=== PATIENT | female | born 1950 | race Caucasian/White ===

== ENCOUNTER 2019-04-18 07:57 | Inpatient (IN) | payer MEDICARE ==
[~2019-04-18] VITALS: Ht 152.4 cm; Wt 60.9 kg
[~2019-04-18 07:57] MED LIST: AMLO10TA4 PO; ATOR10TA PO; CALC1CAP8 PO; CHOL100015 PO; CHOL10002 PO; LEVO50TA64 PO; METO25TA91 PO; OMEP20CA9 PO
[2019-04-18] MEDS ORDERED: SODIUM CHLORIDE 0.9% 1,000 ML IV SCH (08:48)
[2019-04-18 08:49] VITALS: BP 120/71
[2019-04-18] MEDS ORDERED: PLEASE ENTER HEIGHT AND WEIGHT MC SCH (09:00)
[2019-04-18 09:24] LABS: INTERNATIONAL NORMALIZED RATIO 0.92 (0.93-1.1); PROTHROMBIN TIME 9.7 Seconds (9.6-11.5)
[2019-04-18] MEDS ORDERED: FENTANYL PF 100 MCG/2ML ONE (10:07)
[2019-04-18] MEDS ORDERED: FLUMAZENIL 0.1 MG/1 ML, 5ML ONE (10:07)
[2019-04-18] MEDS ORDERED: MIDAZOLAM 1 MG/ML, 5ML ONE (10:07)
[2019-04-18] MEDS ORDERED: NALOXONE 1 MG/ML, 2ML ONE (10:07)
[2019-04-18] MEDS ORDERED: ONDANSETRON 2MG/ML, 2ML IVPush PRN (13:00)
[2019-04-18] MEDS ORDERED: ONDANSETRON ODT 4 MG PO PRN (13:00)
[2019-04-18 13:44] LABS: BASOPHILS # (AUTO) 0.02 x10^3/uL (0-0.1); BASOPHILS % (AUTO) 0 % (0-1); EOSINOPHILS # (AUTO) 0.05 x10^3/uL (0-0.4); EOSINOPHILS % (AUTO) 1 % (1-7); LYMPHOCYTES # (AUTO) 1.43 x10^3/uL (1-3.4); LYMPHOCYTES % (AUTO) 21 % (22-44); MD NO; MEAN CORPUSCULAR HEMOGLOBIN 28.2 pg (27.0-34.8); MEAN CORPUSCULAR HGB CONC 32.4 g/dL (32.4-35.8); MEAN PLATELET VOLUME 7.9 fL (7.4-10.4); MONOCYTES # (AUTO) 0.55 x10^3/uL (0.2-0.8); MONOCYTES % (AUTO) 8 % (2-9); NEUTROPHILS # (AUTO) 4.64 x10^3/uL (1.8-6.8); NEUTROPHILS % (AUTO) 69 % (42-75); PLATELET COUNT 440 x10^3/uL (130-400); RED BLOOD COUNT 3.66 x10^6/uL (3.82-5.3); RED CELL DISTRIBUTION WIDTH 15.7 % (9.6-15.2)
[2019-04-18 13:56] LABS: ALANINE AMINOTRANSFERASE 12 U/L (12-78); ALBUMIN 2.5 g/dL (3.4-5.0); ANION GAP 7 mmol/L (5-15); CHLORIDE 110 mmol/L (98-107)
[2019-04-18 14:07] LABS: ALKALINE PHOSPHATASE 93 U/L (45-117); BILIRUBIN,TOTAL 0.2 mg/dL (0.2-1.0); THYROID STIMULATING HORMONE 0.254 mIU/L (0.358-3.740)
[2019-04-18] MEDS ORDERED: CHOLECALCIFEROL 10000 UNIT PO SCH (14:30)
[2019-04-18 14:34] VITALS: BP 143/78
[2019-04-18] MEDS: SODIUM CHLORIDE 0.9% 1,000 ML IV SCH (15:46)
[2019-04-18] MEDS: CEFTRIAXONE PMX 1GM/50ML 50 ML IV SCH (15:46)
[2019-04-18 18:56] LABS: CREATININE,URINE RANDOM 66.5 mg/dL
[2019-04-18 19:12] LABS: CULTURE INDICATED? YES; MICROSCOPIC INDICATED
[2019-04-18 19:23] VITALS: BP 120/69
[2019-04-18] MEDS: METOPROLOL SUCCINATE 25 MG TAB.ER.24H PO SCH (21:39)
[2019-04-18] MEDS: CALCIUM/VITAMIN D3 250-125 TABLET PO SCH (21:39)
[2019-04-18] MEDS: ATORVASTATIN 10 MG TABLET PO SCH (21:39)
[2019-04-19] MEDS: SODIUM CHLORIDE 0.9% 1,000 ML IV SCH ×2 (02:07→15:32)
[2019-04-19 02:12] VITALS: BP 134/67
[2019-04-19] MEDS: LEVOTHYROXINE 25 MCG TABLET PO SCH (04:59)
[2019-04-19 05:05] LABS: BASOPHILS # (AUTO) 0.02 x10^3/uL (0-0.1); BASOPHILS % (AUTO) 0 % (0-1); EOSINOPHILS # (AUTO) 0.12 x10^3/uL (0-0.4); EOSINOPHILS % (AUTO) 2 % (1-7); LYMPHOCYTES % (AUTO) 17 % (22-44); MD NO; MEAN CORPUSCULAR HEMOGLOBIN 26.9 pg (27.0-34.8); MEAN CORPUSCULAR HGB CONC 31.4 g/dL (32.4-35.8); MEAN CORPUSCULAR VOLUME 85.9 fL (80-100); MEAN PLATELET VOLUME 8.1 fL (7.4-10.4); MONOCYTES # (AUTO) 0.39 x10^3/uL (0.2-0.8); MONOCYTES % (AUTO) 7 % (2-9); NEUTROPHILS # (AUTO) 4.32 x10^3/uL (1.8-6.8); NEUTROPHILS % (AUTO) 74 % (42-75); PLATELET COUNT 399 x10^3/uL (130-400); RED BLOOD COUNT 3.66 x10^6/uL (3.82-5.3); RED CELL DISTRIBUTION WIDTH 15.7 % (9.6-15.2)
[2019-04-19 05:09] LABS: ALBUMIN 2.3 g/dL (3.4-5.0); ANION GAP 6 mmol/L (5-15); CHLORIDE 113 mmol/L (98-107)
[2019-04-19 05:18] LABS: % IRON SATURATION 13 % (20-55); ALANINE AMINOTRANSFERASE 13 U/L (12-78); ALKALINE PHOSPHATASE 91 U/L (45-117); BILIRUBIN,TOTAL 0.2 mg/dL (0.2-1.0); CREATININE 2.93 mg/dL (0.55-1.02); IRON LEVEL 17 mcg/dL (50-170); THYROID STIMULATING HORMONE 0.196 mIU/L (0.358-3.740); TOTAL IRON BINDING CAPACITY 134 mcg/dL (250-450); TOTAL PROTEIN 7.4 g/dL (6.4-8.2)
[2019-04-19 06:52] VITALS: BP 118/72
[2019-04-19] MEDS ORDERED: LEVOTHYROXINE 25 MCG TABLET PO ONE (07:00)
[2019-04-19] MEDS: CALCIUM/VITAMIN D3 250-125 TABLET PO SCH ×2 (08:53→21:33)
[2019-04-19] MEDS: METOPROLOL SUCCINATE 25 MG TAB.ER.24H PO SCH ×2 (08:53→21:33)
[2019-04-19] MEDS: CHOLECALCIFEROL 1,000 UNIT TABLET PO SCH (08:53)
[2019-04-19] MEDS: OMEPRAZOLE 20 MG CAPSULE.DR PO SCH (08:53)
[2019-04-19] MEDS: AMLODIPINE 10 MG TAB PO SCH (08:53)
[2019-04-19] MEDS ORDERED: LEVOTHYROXINE 25 MCG TABLET PO SCH (09:00)
[2019-04-19] MEDS ORDERED: LEVOTHYROXINE 50 MCG TABLET PO SCH (09:00)
[2019-04-19 12:43] VITALS: BP 130/66
[2019-04-19] MEDS: CEFTRIAXONE PMX 1GM/50ML 50 ML IV SCH (15:32)
[2019-04-19 19:11] VITALS: BP 119/67
[2019-04-19] MEDS: ATORVASTATIN 10 MG TABLET PO SCH (21:33)
[2019-04-20 01:12] VITALS: BP 127/68
[2019-04-20] MEDS: SODIUM CHLORIDE 0.9% 1,000 ML IV SCH (04:26)
[2019-04-20] MEDS: LEVOTHYROXINE 25 MCG TABLET PO SCH (05:25)
[2019-04-20] MEDS: METOPROLOL SUCCINATE 25 MG TAB.ER.24H PO SCH ×2 (05:28→20:15)
[2019-04-20 05:55] LABS: BASOPHILS # (AUTO) 0.01 x10^3/uL (0-0.1); BASOPHILS % (AUTO) 0 % (0-1); EOSINOPHILS # (AUTO) 0.09 x10^3/uL (0-0.4); EOSINOPHILS % (AUTO) 1 % (1-7); LYMPHOCYTES # (AUTO) 1.07 x10^3/uL (1-3.4); LYMPHOCYTES % (AUTO) 14 % (22-44); MD NO; MEAN CORPUSCULAR HEMOGLOBIN 28.1 pg (27.0-34.8); MEAN CORPUSCULAR HGB CONC 32.2 g/dL (32.4-35.8); MEAN CORPUSCULAR VOLUME 87.3 fL (80-100); MEAN PLATELET VOLUME 8.3 fL (7.4-10.4); MONOCYTES # (AUTO) 0.44 x10^3/uL (0.2-0.8); MONOCYTES % (AUTO) 6 % (2-9); NEUTROPHILS # (AUTO) 5.88 x10^3/uL (1.8-6.8); NEUTROPHILS % (AUTO) 79 % (42-75); PLATELET COUNT 381 x10^3/uL (130-400); RED BLOOD COUNT 3.49 x10^6/uL (3.82-5.3); RED CELL DISTRIBUTION WIDTH 15.8 % (9.6-15.2)
[2019-04-20 06:02] LABS: CALCIUM 8.9 mg/dL (8.5-10.1); CHLORIDE 119 mmol/L (98-107)
[2019-04-20 06:09] LABS: ALANINE AMINOTRANSFERASE 14 U/L (12-78); ALBUMIN 2.1 g/dL (3.4-5.0); ALKALINE PHOSPHATASE 92 U/L (45-117); ANION GAP 11 mmol/L (5-15); BILIRUBIN,TOTAL 0.2 mg/dL (0.2-1.0); CREATININE 2.94 mg/dL (0.55-1.02)
[2019-04-20 08:00] VITALS: BP 126/70
[2019-04-20] MEDS: AMLODIPINE 10 MG TAB PO SCH (09:00)
[2019-04-20] MEDS: CALCIUM/VITAMIN D3 250-125 TABLET PO SCH ×2 (09:00→20:15)
[2019-04-20] MEDS: OMEPRAZOLE 20 MG CAPSULE.DR PO SCH (09:00)
[2019-04-20] MEDS: CHOLECALCIFEROL 1,000 UNIT TABLET PO SCH (09:00)
[2019-04-20] MEDS: IRON SUCROSE COMPLEX 100MG/5ML IV SCH (10:35)
[2019-04-20] MEDS: SODIUM BICARBONATE 8.4% 50 MEQ in DEXTROSE 5% 1,000 ML IV SCH (11:16)
[2019-04-20] MEDS ORDERED: FENTANYL PF 250 MCG/5ML ONE (13:43)
[2019-04-20] MEDS ORDERED: MIDAZOLAM 1 MG/ML, 2ML ONE (13:43)
[2019-04-20 14:00] VITALS: BP 133/79
[2019-04-20] MEDS ORDERED: DEXAMETHASONE 4 MG/ML, 1ML ONE (14:27)
[2019-04-20] MEDS ORDERED: ONDANSETRON 2MG/ML, 2ML ONE (14:27)
[2019-04-20] MEDS: CEFTRIAXONE PMX 1GM/50ML 50 ML IV SCH (16:31)
[2019-04-20] MEDS: ACETAMINOPHEN 325 MG TABLET PO PRN (18:08)
[2019-04-20 19:09] VITALS: BP 110/65
[2019-04-20] MEDS: ATORVASTATIN 10 MG TABLET PO SCH (20:15)
[2019-04-21 00:22] VITALS: BP 125/72
[2019-04-21] MEDS: SODIUM BICARBONATE 8.4% 50 MEQ in DEXTROSE 5% 1,000 ML IV SCH ×2 (03:58→23:21)
[2019-04-21] MEDS: LEVOTHYROXINE 25 MCG TABLET PO SCH (05:12)
[2019-04-21] MEDS: METOPROLOL SUCCINATE 25 MG TAB.ER.24H PO SCH ×2 (05:12→21:08)
[2019-04-21 06:23] LABS: ALANINE AMINOTRANSFERASE 12 U/L (12-78); ALBUMIN 2.2 g/dL (3.4-5.0); ANION GAP 9 mmol/L (5-15); CALCIUM 9.5 mg/dL (8.5-10.1); CHLORIDE 115 mmol/L (98-107); CREATININE 2.61 mg/dL (0.55-1.02)
[2019-04-21 06:26] LABS: ALKALINE PHOSPHATASE 96 U/L (45-117); BILIRUBIN,TOTAL 0.2 mg/dL (0.2-1.0); MEAN CORPUSCULAR HEMOGLOBIN 28.1 pg (27.0-34.8); MEAN CORPUSCULAR HGB CONC 32.1 g/dL (32.4-35.8); MEAN CORPUSCULAR VOLUME 87.3 fL (80-100); MEAN PLATELET VOLUME 8.5 fL (7.4-10.4); PLATELET COUNT 378 x10^3/uL (130-400); RED BLOOD COUNT 3.53 x10^6/uL (3.82-5.3); RED CELL DISTRIBUTION WIDTH 15.7 % (9.6-15.2); TOTAL PROTEIN 7.4 g/dL (6.4-8.2)
[2019-04-21 06:42] LABS: BASOPHILS # (AUTO) 0.02 x10^3/uL (0-0.1); BASOPHILS % (AUTO) 0 % (0-1); EOSINOPHILS # (AUTO) 0.01 x10^3/uL (0-0.4); EOSINOPHILS % (AUTO) 0 % (1-7); LYMPHOCYTES # (AUTO) 1.02 x10^3/uL (1-3.4); LYMPHOCYTES % (AUTO) 9 % (22-44); MD SCAN; MONOCYTES % (AUTO) 1 % (2-9); NEUTROPHILS # (AUTO) 10.05 x10^3/uL (1.8-6.8); NEUTROPHILS % (AUTO) 90 % (42-75)
[2019-04-21 07:44] VITALS: BP 134/74
[2019-04-21] MEDS: CALCIUM/VITAMIN D3 250-125 TABLET PO SCH ×2 (09:00→21:06)
[2019-04-21] MEDS: AMLODIPINE 10 MG TAB PO SCH (09:00)
[2019-04-21] MEDS: OMEPRAZOLE 20 MG CAPSULE.DR PO SCH (09:00)
[2019-04-21] MEDS: CHOLECALCIFEROL 1,000 UNIT TABLET PO SCH (09:00)
[2019-04-21] MEDS ORDERED: LIDOCAINE 1%, 20ML ONE (09:21)
[2019-04-21] MEDS ORDERED: FLUMAZENIL 0.1 MG/1 ML, 5ML ONE (09:26)
[2019-04-21] MEDS ORDERED: MIDAZOLAM 1 MG/ML, 5ML ONE (09:26)
[2019-04-21] MEDS ORDERED: FENTANYL PF 100 MCG/2ML ONE (09:26)
[2019-04-21] MEDS ORDERED: NALOXONE 1 MG/ML, 2ML ONE (09:27)
[2019-04-21] MEDS ORDERED: DIPHENHYDRAMINE 50 MG/ML, 1ML IVPush ONE (10:00)
[2019-04-21] MEDS ORDERED: methylPREDNISolone SOD SUCC 125 MG/2 ML IVPush SCH (10:00)
[2019-04-21] MEDS: IRON SUCROSE COMPLEX 100MG/5ML IV SCH (10:37)
[2019-04-21 12:51] VITALS: BP 147/75
[2019-04-21] MEDS: CEFTRIAXONE PMX 1GM/50ML 50 ML IV SCH (17:30)
[2019-04-21 19:55] VITALS: BP 132/64
[2019-04-21] MEDS: ATORVASTATIN 10 MG TABLET PO SCH (21:06)
[2019-04-21] MEDS: ACETAMINOPHEN 325 MG TABLET PO PRN (21:21)
[2019-04-22 00:27] VITALS: BP 137/66
[2019-04-22] MEDS: LEVOTHYROXINE 25 MCG TABLET PO SCH (05:49)
[2019-04-22 06:14] LABS: MEAN CORPUSCULAR HEMOGLOBIN 27.8 pg (27.0-34.8); MEAN CORPUSCULAR HGB CONC 31.6 g/dL (32.4-35.8); MEAN CORPUSCULAR VOLUME 87.7 fL (80-100); MEAN PLATELET VOLUME 8.2 fL (7.4-10.4); PLATELET COUNT 460 x10^3/uL (130-400); RED BLOOD COUNT 3.86 x10^6/uL (3.82-5.3); RED CELL DISTRIBUTION WIDTH 15.7 % (9.6-15.2)
[2019-04-22 06:20] LABS: ALANINE AMINOTRANSFERASE 13 U/L (12-78); ALBUMIN 2.4 g/dL (3.4-5.0); ANION GAP 7 mmol/L (5-15); CALCIUM 9.5 mg/dL (8.5-10.1); CHLORIDE 108 mmol/L (98-107)
[2019-04-22 06:23] LABS: ALKALINE PHOSPHATASE 92 U/L (45-117); BILIRUBIN,TOTAL 0.2 mg/dL (0.2-1.0); TOTAL PROTEIN 7.6 g/dL (6.4-8.2)
[2019-04-22 06:56] LABS: MD YES
[2019-04-22 06:57] LABS: BAND#(MANUAL) 0.18 x10^3/uL; BANDS%(MANUAL) 1 % (0-7); LYMPHS% (MANUAL) 12 % (22-44); MONOS#(MANUAL) 0.92 x10^3/uL (0.3-2.7); MONOS% (MANUAL) 5 % (2-9); SEG#(MANUAL) 15.01 x10^3/uL (1.8-6.8); SEGS% (MANUAL) 82 % (42-75)
[2019-04-22 06:59] LABS: ANISOCYTOSIS 1+
[2019-04-22 07:00] LABS: <PLATELET ESTIMATE> INCREASED; <PLT MORPHOLOGY> NORMAL PLT MORPH; OVALOCYTES 1+; TOXIC GRAN 1+
[2019-04-22 07:21] VITALS: BP 150/67
[2019-04-22] MEDS: AMLODIPINE 10 MG TAB PO SCH (09:13)
[2019-04-22] MEDS: IRON SUCROSE COMPLEX 100MG/5ML IV SCH (09:13)
[2019-04-22] MEDS: OMEPRAZOLE 20 MG CAPSULE.DR PO SCH (09:13)
[2019-04-22] MEDS: CHOLECALCIFEROL 1,000 UNIT TABLET PO SCH (09:13)
[2019-04-22] MEDS: CALCIUM/VITAMIN D3 250-125 TABLET PO SCH ×2 (09:13→20:56)
[2019-04-22] MEDS: METOPROLOL SUCCINATE 25 MG TAB.ER.24H PO SCH ×2 (09:14→20:56)
[2019-04-22] MEDS: SODIUM CHLORIDE 0.45% 1,000 ML IV SCH ×2 (11:15→23:50)
[2019-04-22 12:40] VITALS: BP 135/64
[2019-04-22] MEDS: CEFTRIAXONE PMX 1GM/50ML 50 ML IV SCH (16:45)
[2019-04-22 19:49] VITALS: BP 128/64
[2019-04-22] MEDS: ATORVASTATIN 10 MG TABLET PO SCH (20:56)
[2019-04-23 01:33] VITALS: BP 136/77
[2019-04-23] MEDS: LEVOTHYROXINE 25 MCG TABLET PO SCH (05:21)
[2019-04-23 05:47] LABS: ALBUMIN 2.6 g/dL (3.4-5.0); ANION GAP 6 mmol/L (5-15); CALCIUM 9.3 mg/dL (8.5-10.1); CHLORIDE 107 mmol/L (98-107); MEAN CORPUSCULAR HEMOGLOBIN 28.1 pg (27.0-34.8); MEAN CORPUSCULAR HGB CONC 32.3 g/dL (32.4-35.8); MEAN CORPUSCULAR VOLUME 86.9 fL (80-100); MEAN PLATELET VOLUME 7.9 fL (7.4-10.4); PLATELET COUNT 448 x10^3/uL (130-400); RED BLOOD COUNT 4.12 x10^6/uL (3.82-5.3); RED CELL DISTRIBUTION WIDTH 15.8 % (9.6-15.2)
[2019-04-23 05:50] LABS: ALANINE AMINOTRANSFERASE 14 U/L (12-78); ALKALINE PHOSPHATASE 98 U/L (45-117); BILIRUBIN,TOTAL 0.3 mg/dL (0.2-1.0); CREATININE 1.97 mg/dL (0.55-1.02); TOTAL PROTEIN 7.5 g/dL (6.4-8.2)
[2019-04-23 06:13] LABS: BASOPHILS # (AUTO) 0.02 x10^3/uL (0-0.1); BASOPHILS % (AUTO) 0 % (0-1); EOSINOPHILS # (AUTO) 0.08 x10^3/uL (0-0.4); EOSINOPHILS % (AUTO) 1 % (1-7); LYMPHOCYTES % (AUTO) 21 % (22-44); MD SCAN; MONOCYTES % (AUTO) 5 % (2-9); NEUTROPHILS # (AUTO) 8.09 x10^3/uL (1.8-6.8); NEUTROPHILS % (AUTO) 73 % (42-75)
[2019-04-23] MEDS ORDERED: POTASSIUM CHLORIDE 20 MEQ TAB.ER.PRT PO ONE (07:00)
[2019-04-23] MEDS: IRON SUCROSE COMPLEX 100MG/5ML IV SCH (08:11)
[2019-04-23] MEDS: CHOLECALCIFEROL 1,000 UNIT TABLET PO SCH (08:12)
[2019-04-23] MEDS: AMLODIPINE 10 MG TAB PO SCH (08:12)
[2019-04-23] MEDS: OMEPRAZOLE 20 MG CAPSULE.DR PO SCH (08:12)
[2019-04-23] MEDS: CALCIUM/VITAMIN D3 250-125 TABLET PO SCH ×2 (08:12→20:22)
[2019-04-23] MEDS: METOPROLOL SUCCINATE 25 MG TAB.ER.24H PO SCH ×2 (08:12→20:22)
[2019-04-23 08:13] VITALS: BP 136/63
[2019-04-23] MEDS: SODIUM CHLORIDE 0.45% 1,000 ML IV SCH (12:01)
[2019-04-23 12:34] VITALS: BP 137/70
[2019-04-23] MEDS: CEFTRIAXONE PMX 1GM/50ML 50 ML IV SCH (16:35)
[2019-04-23 20:00] VITALS: BP 134/69
[2019-04-23] MEDS: ATORVASTATIN 10 MG TABLET PO SCH (20:22)
[2019-04-24 00:27] VITALS: BP 126/73
[2019-04-24] MEDS: SODIUM CHLORIDE 0.45% 1,000 ML IV SCH ×2 (02:32→16:21)
[2019-04-24] MEDS: LEVOTHYROXINE 25 MCG TABLET PO SCH (05:36)
[2019-04-24 08:03] VITALS: BP 154/81
[2019-04-24 08:05] LABS: MEAN CORPUSCULAR HGB CONC 31.3 g/dL (32.4-35.8); MEAN CORPUSCULAR VOLUME 86.3 fL (80-100); MEAN PLATELET VOLUME 7.8 fL (7.4-10.4); PLATELET COUNT 423 x10^3/uL (130-400); RED BLOOD COUNT 4.35 x10^6/uL (3.82-5.3); RED CELL DISTRIBUTION WIDTH 15.9 % (9.6-15.2)
[2019-04-24 08:08] LABS: ALBUMIN 2.7 g/dL (3.4-5.0); ANION GAP 6 mmol/L (5-15); CALCIUM 9.6 mg/dL (8.5-10.1); CHLORIDE 108 mmol/L (98-107); CREATININE 1.75 mg/dL (0.55-1.02)
[2019-04-24 08:47] LABS: MD YES
[2019-04-24 08:48] LABS: BAND#(MANUAL) 0.09 x10^3/uL; BANDS%(MANUAL) 1 % (0-7); EOS#(MANUAL) 0.09 x10^3/uL (0.0-0.4); EOS% (MANUAL) 1 % (1-7); LYMPH#(MANUAL) 1.55 x10^3/uL (1-3.4); LYMPHS% (MANUAL) 18 % (22-44); MONOS#(MANUAL) 0.52 x10^3/uL (0.3-2.7); MONOS% (MANUAL) 6 % (2-9); MYELOCYTES# (MANUAL) 0.09 x10^3/uL (0-0); MYELOCYTES% (MANUAL) 1 % (0-0); NRBC % (MANUAL) 1 % (0-1)
[2019-04-24 08:49] LABS: ANISOCYTOSIS 1+; METAMYELOCYTES# (MANUAL) 0.09 x10^3/uL (0-0); METAMYELOCYTES% (MANUAL) 1 % (0-1); SEG#(MANUAL) 6.19 x10^3/uL (1.8-6.8); SEGS% (MANUAL) 72 % (42-75)
[2019-04-24 08:50] LABS: <PLATELET ESTIMATE> INCREASED; <PLT MORPHOLOGY> NORMAL PLT MORPH; OVALOCYTES 1+
[2019-04-24] MEDS: IRON SUCROSE COMPLEX 100MG/5ML IV SCH (09:42)
[2019-04-24] MEDS: AMLODIPINE 10 MG TAB PO SCH (09:43)
[2019-04-24] MEDS: OMEPRAZOLE 20 MG CAPSULE.DR PO SCH (09:43)
[2019-04-24] MEDS: CHOLECALCIFEROL 1,000 UNIT TABLET PO SCH (09:43)
[2019-04-24] MEDS: METOPROLOL SUCCINATE 25 MG TAB.ER.24H PO SCH ×2 (09:43→21:13)
[2019-04-24] MEDS: CALCIUM/VITAMIN D3 250-125 TABLET PO SCH ×2 (09:43→21:13)
[2019-04-24 13:23] VITALS: BP 118/64
[2019-04-24] MEDS: CEFTRIAXONE PMX 1GM/50ML 50 ML IV SCH (16:22)
[2019-04-24 18:41] VITALS: BP 144/83
[2019-04-24] MEDS: ATORVASTATIN 10 MG TABLET PO SCH (21:13)
[2019-04-24] MEDS: ACETAMINOPHEN 325 MG TABLET PO PRN (21:14)
[2019-04-25 00:55] VITALS: BP 132/74
[2019-04-25] MEDS: SODIUM CHLORIDE 0.45% 1,000 ML IV SCH (05:40)
[2019-04-25] MEDS: LEVOTHYROXINE 25 MCG TABLET PO SCH (06:03)
[2019-04-25 07:52] VITALS: BP 125/69
[2019-04-25] MEDS: CALCIUM/VITAMIN D3 250-125 TABLET PO SCH (09:00)
[2019-04-25] MEDS: OMEPRAZOLE 20 MG CAPSULE.DR PO SCH (09:00)
[2019-04-25] MEDS: METOPROLOL SUCCINATE 25 MG TAB.ER.24H PO SCH (09:00)
[2019-04-25] MEDS: CHOLECALCIFEROL 1,000 UNIT TABLET PO SCH (09:00)
[2019-04-25] MEDS: AMLODIPINE 10 MG TAB PO SCH (09:00)
[2019-04-25] MEDS ORDERED: METO25TA91 PO (09:13)
[2019-04-25] MEDS ORDERED: LEVO25TA2 PO (09:13)
== END 2019-04-25 12:25 | disposition home health service (06) | DRG 668 ==
LOC: RAD 07:57 → ORIP 12:37 → 4WST 14:26 → DCLOUNGE 04-25 12:06
PROVIDERS: ADMIT Internal Medicine Nephrology; ATTEND Internal Medicine Nephrology
PROC: 0TBB8ZX Excision of Bladder, Via Natural or Artificial Opening Endoscopic, Diagnostic (ICD-10-PCS; principal; 2019-04-20 14:30)
PROC: 0T9030Z Drainage of Right Kidney with Drainage Device, Percutaneous Approach (ICD-10-PCS; 2019-04-21)
PROC: 0T9430Z Drainage of Left Kidney Pelvis with Drainage Device, Percutaneous Approach (ICD-10-PCS; 2019-04-21)
DX: N13.6 Pyonephrosis (principal); E43 Unspecified severe protein-calorie malnutrition; E87.2 Acidosis; N17.9 Acute kidney failure, unspecified; N18.4 Chronic kidney disease, stage 4 (severe); I12.9 Hypertensive chronic kidney disease with stage 1 through stage 4 chronic kidney disease, or unspecified chronic kidney disease; N32.81 Overactive bladder; E87.6 Hypokalemia; E78.5 Hyperlipidemia, unspecified; E03.9 Hypothyroidism, unspecified; D63.1 Anemia in chronic kidney disease; N30.20 Other chronic cystitis without hematuria; N30.10 Interstitial cystitis (chronic) without hematuria; G31.9 Degenerative disease of nervous system, unspecified; Z91.19 Patient's noncompliance with other medical treatment and regimen; Z80.52 Family history of malignant neoplasm of bladder; Z87.440 Personal history of urinary (tract) infections; Z87.891 Personal history of nicotine dependence; Z90.710 Acquired absence of both cervix and uterus; Z99.3 Dependence on wheelchair; Z68.26 Body mass index [BMI] 26.0-26.9, adult; Z88.5 Allergy status to narcotic agent; Z88.8 Allergy status to other drugs, medicaments and biological substances; N32.89 Other specified disorders of bladder
CPT/HCPCS: 36415; 50432; 74176; 77012; 80053; 80069; 81001; 82436; 82570; 82728; 82962; 83540; 83550; 83735; 84100; 84133; 84156; 84300; 84439; 84443; 85025; 85610; 86038; 86160; 86162; 86225; 87086; 88305; 99156; 99157; C1894; G0378; J0696; J1100; J1756; J2250; J2405; J3010; J7070; C1729; C1769; J1200; J2310; J2930; J7030

== ENCOUNTER 2019-05-31 05:55 | Day surgery (SDC) | payer MEDICARE ==
[~2019-05-31] VITALS: Ht 152.4 cm; Wt 55.1 kg
[~2019-05-31 05:55] MED LIST changes: +LEVO25TA2 PO
[2019-05-31] MEDS ORDERED: cranberry PO (07:03)
[2019-05-31] MEDS ORDERED: vitamin b12 PO (07:03)
[2019-05-31] MEDS ORDERED: vitamin C PO (07:03)
[2019-05-31] MEDS ORDERED: SODIUM BICARB (07:03)
[2019-05-31 07:04] VITALS: BP 134/82
[2019-05-31] MEDS ORDERED: LIDOCAINE-MPF 1%, 5ML ONE (08:08)
[2019-05-31] MEDS ORDERED: MIDAZOLAM 1 MG/ML, 5ML ONE (08:14)
[2019-05-31] MEDS ORDERED: FLUMAZENIL 0.1 MG/1 ML, 5ML ONE (08:14)
[2019-05-31] MEDS ORDERED: DIPHENHYDRAMINE 50 MG/ML, 1ML ONE (08:14)
[2019-05-31] MEDS ORDERED: FENTANYL PF 100 MCG/2ML ONE (08:14)
[2019-05-31] MEDS ORDERED: NALOXONE 1 MG/ML, 2ML ONE (08:15)
[2019-05-31] MEDS ORDERED: SODIUM CHLORIDE 0.9% 1,000 ML IV SCH ×2 (09:00→09:06)
== END 2019-05-31 14:30 | disposition home or self-care (01) ==
LOC: OUT 05:55 → EDSTATUS 08:00 → OUT 14:30
PROVIDERS: ATTEND Urology
DX: E11.22 Type 2 diabetes mellitus with diabetic chronic kidney disease (principal); I12.9 Hypertensive chronic kidney disease with stage 1 through stage 4 chronic kidney disease, or unspecified chronic kidney disease; N18.3 Chronic kidney disease, stage 3 (moderate); N30.11 Interstitial cystitis (chronic) with hematuria; E78.00 Pure hypercholesterolemia, unspecified; F32.9 Major depressive disorder, single episode, unspecified; K21.9 Gastro-esophageal reflux disease without esophagitis; E03.9 Hypothyroidism, unspecified; Z79.890 Hormone replacement therapy; Z79.899 Other long term (current) drug therapy; Z87.891 Personal history of nicotine dependence; Z88.5 Allergy status to narcotic agent; Z88.8 Allergy status to other drugs, medicaments and biological substances; Z90.710 Acquired absence of both cervix and uterus; Z99.3 Dependence on wheelchair; Z80.52 Family history of malignant neoplasm of bladder
CPT/HCPCS: 50695; 99156; 99157; C1751; C1769; C2625; J1200; J2250; J3010; J7030; J2310

== ENCOUNTER 2019-06-10 15:10 | Outpatient (CLI) | payer MEDICARE | END 2019-06-10 23:59 | disposition home or self-care (01) | LOC: CFH 15:10 | PROVIDERS: ATTEND Internal Medicine Cardiovascular Disease | DX: R00.0 Tachycardia, unspecified (principal) | CPT/HCPCS: 0399T; 93306 ==

== ENCOUNTER 2019-12-08 07:10 | Day surgery (SDC) | payer MEDICARE ==
[~2019-12-08] VITALS: Ht 165.1 cm; Wt 52.7 kg
[~2019-12-08 07:10] MED LIST changes: +SODIUM BICARB; +cranberry PO; +vitamin C PO; +vitamin b12 PO
[2019-12-08] MEDS ORDERED: SODIUM CHLORIDE 0.9% 1,000 ML IV SCH (07:46)
[2019-12-08 07:49] VITALS: BP 146/84
[2019-12-08 08:46] LABS: INTERNATIONAL NORMALIZED RATIO 0.92 (0.93-1.1); PROTHROMBIN TIME 9.7 Seconds (9.6-11.5)
[2019-12-08] MEDS ORDERED: MIDAZOLAM 1 MG/ML, 5ML ONE (08:55)
[2019-12-08] MEDS ORDERED: FENTANYL PF 100 MCG/2ML ONE (08:55)
[2019-12-08] MEDS ORDERED: NALOXONE 1 MG/ML, 2ML ONE (08:56)
[2019-12-08] MEDS ORDERED: FLUMAZENIL 0.1 MG/1 ML, 5ML ONE (08:56)
== END 2019-12-08 12:03 | disposition home or self-care (01) ==
LOC: OUT 07:10
PROVIDERS: ATTEND Nurse Practitioner
DX: R80.9 Proteinuria, unspecified (principal); I12.9 Hypertensive chronic kidney disease with stage 1 through stage 4 chronic kidney disease, or unspecified chronic kidney disease; N18.4 Chronic kidney disease, stage 4 (severe); Z79.01 Long term (current) use of anticoagulants; Z88.5 Allergy status to narcotic agent; Z88.8 Allergy status to other drugs, medicaments and biological substances; Z87.891 Personal history of nicotine dependence
CPT/HCPCS: 36415; 50200; 77012; 85610; 88300; 99156; 99157; J2250; J3010; J7030; J2310